=== PATIENT | male | born 1970 | race Caucasian/White ===

== ENCOUNTER 2024-11-26 20:04 | Emergency (ER) | payer BC, SELFPAY ==
[2024-11-26 20:19] VITALS: BP 142/76
[2024-11-26 20:47] LABS: % Basophils 0.5 % (0-2); % Eosinophils 0.6 % (0-6); % Immature Granulocytes 0.4 % (0-0.5); % Lymphocytes 7.9 % (20.5-51.1); % Monocytes 7.2 % (1.7-9.3); % Neutrophils 83.4 % (42.2-75.2); Absolute Basophils 0.1 10^3/uL (0-0.2); Absolute Eosinophils 0.1 10^3/uL (0-0.7); Absolute Lymphocytes 0.9 10^3/uL (1.2-3.4); Absolute Monocytes 0.8 10^3/uL (0.1-0.6); Absolute Neutrophils 9.5 10^3/uL (1.4-6.5); Hematocrit 41.9 % (39.0-52.0); Hemoglobin 14.9 g/dL (13.0-18.0); Mean Corp Hgb Conc. 35.6 g/dL (33.0-37.0); Mean Corpuscular Hgb 34.1 pg (27.0-31.0); Mean Corpuscular Volume 95.9 fL (80.0-94.0); Mean Platelet Volume 9.8 fL (7.4-10.4); Nucleated Red Blood Cells % 0 % (-); Platelet Count 191 10^3/uL (130-400); Red Blood Cell Count 4.37 10^6/uL (4.70-6.10); Urine Albumin 2+ (Neg - Trace); Urine Bilirubin Negative (Negative); Urine Character Clear (Clear); Urine Color Yellow; Urine Glucose Negative (Negative); Urine Ketone Negative (Negative); Urine Leukocyte 3+ (Negative); Urine Nitrite Negative (Negative); Urine Occult Blood 4+ (Negative); Urine Specific Gravity 1.005 (<1.030); Urine Urobilinogen Negative (Neg - 1+); Urine pH 6.5 (5.0-9.0); White Blood Cell Count 11.4 10^3/uL (4.8-10.8)
[2024-11-26 21:03] LABS: Urine Bacteria Moderate (Negative); Urine White Cell 90-100 /HPF (0-5)
[2024-11-26 21:05] LABS: ALT (SGPT) 24 U/L (0-50); AST (SGOT) 24 U/L (17-59); Albumin 4.6 g/dl (3.5-5.0); Alkaline Phosphatase 80 U/L (38-126); Blood Urea Nitrogen 17 mg/dl (9-20); Calcium 9.7 mg/dl (8.4-10.2); Carbon Dioxide 28 mmol/L (22-30); Chloride 100 mmol/L (98-107); Glucose 110 mg/dl (70-99); Potassium 3.8 mmol/L (3.5-5.1); Sodium 136 mmol/L (135-145); Total Bilirubin 0.9 mg/dl (0.2-1.3); Total Protein 7.4 g/dl (6.3-8.2); eGFR > 60.00
[2024-11-26 22:21] VITALS: BMI 28.3
[2024-11-26 22:22] VITALS: BP 135/74
--- NOTE | 2024-11-26 23:08 | ED.GENMED ---
History of Present Illness
General
Chief Complaint: Flank Pain
Source: patient
Exam Limitations: none
Time Seen by Provider: 11/26/24 22:43
Nursing documentation reviewed up to this point in time: agreed with
History of Present Illness
History of Present Illness:
The patient is a very pleasant 54-year-old man who reports 2 days of blood in his urine, left flank pain, and burning at the tip of his penis. Patient reports that the left lower back pain comes and goes and at times is severe and stabbing. When
it becomes severe, he develops nausea. He has not had any vomiting or fever. He has no known history of kidney stones.
Past History
Past History
ED Past Medical History: Other
ED Past Surgical History: Orthopedic
Social History
Tobacco: Non-smoker
Alcohol: Other
Drug: None
Personal:
Living: with family
Employment: Other
Family History
Family History: Other
Review of Systems
Review of Systems
Allergies reviewed?: Yes
All Other Systems: ROS reviewed and negative except as documented in HPI and ROS
Constitutional: Reports no symptoms
EENT: Reports no symptoms
Respiratory: Reports no symptoms
Cardiac: Reports no symptoms
ABD/GI: Reports nausea
: Reports dysuria, frequency, flank pain, urgency and bleeding
Musculoskeletal: Reports no symptoms
Skin: Reports no symptoms
Neurological: Reports no symptoms
Hematologic/Lymphatic: Reports no symptoms
Psychiatric: Reports no symptoms
Phy Exam
Physical Exam
Physical Exam:
Physical Exam
General: no apparent distress, not acutely ill
Neck: supple. no meningeal signs. normal psoterior pharynx
Heart: s1/s2 regular rate and rhythm, no murmur. equal radial pulses.
Lungs: no acute respiratory distress. clear bilaterally
Abdomen: normal bowel sounds. not tender. no CVAT
Neuro: alert and oriented. no focal neurological deficits
Skin: no rash
Psychiatric: well kept. interactive and cooperative
Extremities: no edema. no calf tenderness. negative homans. good distal pulses
Course
Orders/Labs/Results
Orders:
Orders
11/26/24 20:32
Complete Blood Count/With Diff Urgent
Comprehensive Metabolic Panel Urgent
Urinalysis Urgent
Date Specimen was Collected: 11/26/24
Time Specimen was Collected: 20:10
Urine Microscopic Urgent
Date Specimen was Collected: 11/26/24
Time Specimen was Collected: 20:10
11/26/24 23:15
CT Abd/pel Without Iv Or Oral Urgent
Comment:
Reason For Exam: L flank pain
11/26/24 23:16
CefTRIAXone [Rocephin] 1,000 mg IV NOW STA
Abnormal Lab Results
11/26/24
20:32
WBC 11.4 H 10^3/uL
(4.8-10.8)
RBC 4.37 L 10^6/uL
(4.70-6.10)
MCV 95.9 H fL
(80.0-94.0)
MCH 34.1 H pg
(27.0-31.0)
Absolute Neuts (auto) 9.5 H 10^3/uL
(1.4-6.5)
Absolute Lymphs (auto) 0.9 L 10^3/uL
(1.2-3.4)
Absolute Monos (auto) 0.8 H 10^3/uL
(0.1-0.6)
Neutrophils % 83.4 H %
(42.2-75.2)
Lymphocytes % 7.9 L %
(20.5-51.1)
Glucose 110 H mg/dl
(70-99)
Urine Occult Blood 4+ A
(Negative)
Ur Leukocyte Esterase 3+ A
(Negative)
Urine RBC 7-10 A /HPF
(0-2)
Urine WBC 90-100 A /HPF
(0-5)
Urine Bacteria Moderate A
(Negative)
Urine Albumin 2+ A
(Neg - Trace)
11/26/24 20:32
11/26/24 20:32
Vital Signs
Initial and Last Documented VS:
Initial Vital Signs
Temp Pulse Resp BP Pulse Ox
98.5 F 96 18 142/76 96
11/26/24 20:19 11/26/24 20:19 11/26/24 20:19 11/26/24 20:19 11/26/24 20:19
Last Documented Vital Signs
Temp Pulse Resp BP Pulse Ox
98.5 F 79 18 135/76 95
11/26/24 20:19 11/27/24 00:07 11/27/24 00:07 11/27/24 00:07 11/27/24 00:07
MDM/Problems Addressed
Differential Diagnosis Includes:
Acute cystitis, acute pyelonephritis, infected kidney stone
MDM/Problems Addressed:
Patient presents with acute hematuria and left flank pain
Acute Exacerbation and/or Progression of Chronic Illness:
Patient is acutely hypertensive, likely due to pain
Acute Exacerbation and/or Progression of Chronic Illness: HTN
*Radiology
Radiology exam reviewed: radiology read reviewed
*Pulse Oximetry
Patient hypoxic: no
*EKG
Interpreted by ED Provider?: NA
*Bed Manager Interpretation
Rate: Bed Manager- N/A
*Critical Care Note
Total Time (30-74mins, 75-104mins- exclusive of procedures): Not Applicable
Data Reviewed
Source: patient
Patient Management
Social determinants of health affecting care: Living situation and Strong social support
Escalation/DeEscalation of care consider admission/obs:
Patient remains well and comfortable appearing. CT shows no sign of calculus. Patient's pain has been minimal for hours in the ED without any fever or vomiting. Patient likely has pyelonephritis. Patient will be treated with oral antibiotics and
encouraged to follow-up with his primary care doctor in about a week.
ED Attending Note
-
Portions of this chart may have been created with voice recognition software.� Occasional wrong word or��sound alike� substitutions may have occurred due to the inherent limitations of voice recognition software.
Discharge Plan
Departure
Patient Disposition: Home (Routine Discharge)
Date of Disposition: 11/27/24
Time of Disposition: 00:38
Patient with high blood pressure during this ER visit?: Yes
Condition: Good
Covid-19: Not Applicable
Discharge Problem:
Pyelonephritis
Instructions: Urinary tract infections in adults, Blood in Urine (Hematuria), Adult ED, BLOOD PRESSURE
Prescriptions:
New
ciprofloxacin HCl [Cipro] 500 mg tablet
500 mg PO BID Qty: 19 0RF
No Action
Theragen Tablet
1 tab PO DAILY
ibuprofen 200 mg Tablet
600 mg PO DAILYPRN PRN (Reason: mild pain)
Wegovy 0.5 mg/0.5 mL Pen Injector
0.5 mg SC FR
Referrals:
UNKNOWN - PT DOES,NOT KNOW [Family Provider] -
Activity Restrictions/Additional Instructions:
Return for fever or vomiting. Please follow-up with your primary care doctor within 7 to 10 days.
Interventions
Interventions:
*Risk Screen - Suicide Last Done: 11/26/24 20:19
*General Assessment Last Done: 11/26/24 20:19
WU-Ktcrrq-Wzgobwubyc Assessment Last Done: 11/26/24 22:23
ED-Male Genitourinary Assessment Last Done: 11/26/24 22:23
Discharge Date and Time
Print Language: SPANISH
[2024-11-27] MEDS: ROCEPHIN 1000 MG IV (00:05)
[2024-11-27 00:07] VITALS: BP 135/76
== END 2024-11-27 00:56 | disposition home or self-care (01) ==
LOC: EMR 20:04
PROVIDERS: EMERGENCY PHYSICIAN Emergency Medicine
DX: N12 Tubulo-interstitial nephritis, not specified as acute or chronic (principal); M54.50 Low back pain, unspecified
CPT/HCPCS: 96374; 99284; 74176; 80053; 81003; 81015; 85025